=== PATIENT | male | born 1990 | race Caucasian/White ===

== ENCOUNTER 2024-01-31 02:30 | Emergency (ER) | payer BC, OTHER ==
[~2024-01-31] VITALS: Ht 175.3 cm; Wt 100.0 kg
[2024-01-31 02:35] VITALS: BP 145/109; PULSE 117; RESP 17; TEMP 97.8; O2SAT 95
== END 2024-01-31 02:48 ==
LOC: ER 02:30
DX: Z02.89 Encounter for other administrative examinations (principal); F10.129 Alcohol abuse with intoxication, unspecified; F17.200 Nicotine dependence, unspecified, uncomplicated; Y90.9 Presence of alcohol in blood, level not specified
CPT/HCPCS: 99283